=== PATIENT | male | born 1955 | race African-American/Black ===

== ENCOUNTER 2021-10-25 20:12 | Emergency (ER) | payer BC ==
[~2021-10-25] VITALS: Ht 175.3 cm; Wt 128.3 kg
[2021-10-26 00:28] LABS: CLARITY URINE CLEAR (CLEAR); COLOR URINE DARK YELLOW (YELLOW); KETONES URINE 1+ (NEGATIVE); LEUKOCYTE ESTERASE URINE NEGATIVE (NEGATIVE); NITRITE URINE NEGATIVE (NEGATIVE); OCCULT BLOOD URINE NEGATIVE (NEGATIVE); PROTEIN URINE 1+ (NEGATIVE); SPECIFIC GRAVITY URINE 1.031 (1.005-1.030)
[2021-10-26] MEDS ORDERED: VISCOUS LIDOCAINE 2% 15 ML UDC MM STA (01:28)
[2021-10-26] MEDS ORDERED: MAGNESIUM/ALUMINUM HYDROXIDE/SIMETHICONE 30ML UDC PO STA (01:28)
[2021-10-26] MEDS ORDERED: ACETAMINOPHEN 325MG TABLET PO ONE (01:30)
[2021-10-26] MEDS ORDERED: ONDANSETRON 4MG ODT PO ONE (01:30)
[2021-10-26] MEDS ORDERED: FAMOTIDINE 20MG TABLET PO ONE (01:30)
[2021-10-26] MEDS ORDERED: MAG-55 MT (03:16)
[2021-10-26] MEDS ORDERED: FAMO40TA70 MT (03:16)
[2021-10-26 03:19] LABS: BASOPHILS % 0.7 % (0.0-2.0); EOSINOPHILS % 0.1 % (0.0-5.0); HEMATOCRIT. 39.1 % (42.0-52.0); HEMOGLOBIN. 12.7 g/dL (14.0-18.0); LYMPHOCYTES % 12.8 % (20.0-50.0); MEAN CORPUSCULAR VOLUME 95.4 fL (80.0-94.0); MEAN PLATELET VOLUME 7.3 fl (7.4-10.4); MONOCYTES % 8.3 % (2.0-8.0); NEUTROPHILS % 78.1 % (40.0-76.0); PLATELET 367 x1000/uL (130-400); RED CELL DISTRIBUTION WIDTH 12.9 % (11.6-14.6)
[2021-10-26 03:58] LABS: CHLORIDE 109 mEq/L (98-107)
[2021-10-26 04:50] VITALS: BP 122/78
== END 2021-10-26 04:50 | disposition home or self-care (01) ==
LOC: ER 20:12
DX: R10.10 Upper abdominal pain, unspecified (principal); K21.9 Gastro-esophageal reflux disease without esophagitis; I10 Essential (primary) hypertension
CPT/HCPCS: 36415; 80053; 81003; 83690; 85025; 99284; Q0162